=== PATIENT | male | born 1960 | race African-American/Black ===

== ENCOUNTER 2023-12-24 12:27 | Emergency (ER) | payer MEDICARE, OTHER ==
[~2023-12-24] VITALS: Ht 157.5 cm; Wt 79.4 kg
[~2023-12-24 12:27] MED LIST: ACETAMINOPHEN325 M1 PO; AMLODIPINE BESY10 MG PEG; AUBAGIO14 MG PEG; BACLOFEN10 MG PO; DECUBI VITE CA1 EACH; DULCOLAX10 MG PR; ELIQUIS2.5 MG PEG; ERGOCALCIF200 MCG/1 PEG; FENTANYL1 EAC4 TD; GUAIFENESI100 MG/5 M PEG; HYDRALAZINE HCL25 MG PEG; MIRALAX17 GM PEG; PRO-STAT AWC L887 ML PEG; QUETIAPINE FUMA25 MG PO; SENOKOT-S TABL1 EACH PEG; SINEMET 25-1001 EACH PEG
[2023-12-24 12:32] VITALS: TEMP 98.5
[2023-12-24 15:30] VITALS: PULSE 64; RESP 17; O2SAT 99
== END 2023-12-24 15:35 ==
LOC: ER 12:32
DX: Z43.1 Encounter for attention to gastrostomy (principal); R47.01 Aphasia; G20.A1 Parkinson's disease without dyskinesia, without mention of fluctuations; I10 Essential (primary) hypertension; G35 Multiple sclerosis; Z86.718 Personal history of other venous thrombosis and embolism
CPT/HCPCS: 99283